=== PATIENT | female | born 1965 | race Caucasian/White ===

== ENCOUNTER 2016-12-13 09:43 | Emergency (ER) | payer OTHER ==
[~2016-12-13] VITALS: Ht 165.1 cm; Wt 90.0 kg
[~2016-12-13 09:43] MED LIST: ASA; ASPIRIN EC325 MG PO; BENADRYL 50MG C50 MG OR; CIPROFLOXACN500 MG PO; CYCLOBENZAPR10 MG OR; DIFLUCAN150 MG PO; EPIPEN0.3 MG IM; FLONASE NASAL50 MCG; FOLIC ACID400 MCG; LORTAB 5-325 MG1 TAB PO; MACROBID100 MG OR; MACROBID100 MG PO; MEDDOSEPAK OR; METOPROLOL25 M1 OR; NASONEX50 MCG/AC; PRENATA5 OR; TAMSULOSIN HCL0.4 MG PO; TORADOL PO; TRAMADOL HCL50 MG PO; ZOFRAN ODT4 MG PO; ZOFRAN ODT4 MG SL; ZPAK OR; [UNRECOGNIZED DRUG - REMARK]
[2016-12-13 10:28] LABS: HEMATOCRIT 39.9 % (37.0-47.0); HEMOGLOBIN 13.5 g/dl (12.0-16.0); IMMATURE GRANULOCYTES 0.4 % (0.0-1.0); MEAN CELL VOLUME 88.1 fL CALC (80.0-100.0); MEAN CORPUSCULAR HGB 29.8 pG CALC (26.0-32.0); MEAN CORPUSCULAR HGB CONC 33.8 g/L CALC (32.0-36.0); NEUT# 6.91 thou/uL (2.00-7.15); RED BLOOD COUNT 4.53 mill/uL (4.20-5.60); RED CELL DISTRI WIDTH 11.9 % (11.5-15.5)
[2016-12-13 10:29] LABS: URINE BLOOD DIPSTICK LARGE (NEGATIVE); URINE CLARITY SLIGHT CLOUDY; URINE COLOR YELLOW; URINE GLUCOSE - DIPSTICK NEGATIVE (NEGATIVE); URINE KETONE NEGATIVE (NEGATIVE); URINE LEUK ESTERASE TRACE (NEGATIVE); URINE NITRITE - DIPSTICK NEGATIVE (Negative); URINE PH 5.5 (4.5-8.0); URINE PROTEIN - DIPSTICK TRACE mg/dL (NEG-TRACE); URINE SPECIFIC GRAVITY >=1.030
[2016-12-13 10:33] LABS: COCAINE NEGATIVE (NEGATIVE); METHADONE NEGATIVE (NEGATIVE); TETRAHYDROCANNABIONOL NEGATIVE (NEGATIVE)
[2016-12-13 10:34] LABS: BARBITURATES NEGATIVE (NEGATIVE); OXCYCODONE NEGATIVE (NEGATIVE); TRICYLIC ANTIDEPRESSANTS NEGATIVE (NEGATIVE)
[2016-12-13 10:40] LABS: URINE BILIRUBIN - DIPSTICK SMALL (NEGATIVE)
[2016-12-13 10:45] LABS: ALBUMIN 3.8 g/dL (3.2-5.0); ALKALINE PHOSPHATASE 129 u/l (38-126); ANION GAP 17 (6-22 (CALC)); BILIRUBIN, TOTAL 0.7 mg/dL (0.0-1.4); BUN 12 mg/dL (7-17); BUN/CREATININE RATIO 16 (12-20 (CALC)); CALCIUM 9.6 mg/dL (8.4-10.2); CARBON DIOXIDE 28 mmol/l (22-30); CHLORIDE 98 mmol/l (95-108); CREATININE 0.7 mg/dL (0.5-1.0); GFR > 60 ML/MIN (>=60 (CALC)); GFR FOR AFR.AMER. > 60 ML/MIN (>=60 (CALC)); GLUCOSE 173 mg/dL (65-105); POTASSIUM 4.7 mmol/l (3.5-5.1); SGOT/AST 38 u/l (14-36); SGPT/ALT 53 u/l (9-52); SODIUM 138 mmol/l (137-146); TOTAL PROTEIN 7.1 g/dL (6.3-8.2)
[2016-12-13 10:49] LABS: URINE SQUAMOUS EPITHELIAL CELL FEW EPI/hpf (0-FEW); URINE TRANSITIONAL EPI. CELLS FEW hpf
[2016-12-13 10:50] LABS: URINE MUCUS FEW hpf (NONE-FEW)
[2016-12-13 11:36] VITALS: BP 142/87
[2016-12-13] MEDS ORDERED: BACTRIM DS1 TAB PO (12:03)
[2016-12-13] MEDS ORDERED: TRAMADOL HYDROC50 MG PO (12:03)
[2016-12-13] MEDS ORDERED: DIFLUCAN150 MG PO (12:16)
== END 2016-12-13 12:21 | disposition home or self-care (01) | DRG 690 ==
LOC: ED 09:43
PROVIDERS: Emergency Medicine
DX: N12 Tubulo-interstitial nephritis, not specified as acute or chronic (principal); R50.9 Fever, unspecified; R10.31 Right lower quadrant pain; R11.0 Nausea; R35.0 Frequency of micturition; R30.0 Dysuria